=== PATIENT | male | born 1975 | race Caucasian/White ===

== ENCOUNTER 2023-07-27 08:57 | Outpatient (AMB) | payer BC, SELFPAY ==
--- NOTE | 2023-07-27 08:57 | A.OFFVIS_ITS ---
Intake Visit Reasons: UVJ stone/hx nephrolithiasis Intake Note: New Patient presents for initial visit for nephrolithiasis Urology Medications: none Blood Thinner: none Biophysics Professor Required: No Accompanied by: Self / Same As Patient Allergies No Known Allergies Allergy (Verified 07/27/23 21:21) Medication List - Last Reconciled 07/27/23 by AKIKO Dunn carbidopa-levodopa 25-100 mg 2 tabs PO BID trihexyphenidyl mg PO HPI Comments Details: Shagufta is a very pleasant 47-year-old male patient of Dr. Ibrahim. He has a past medical history of Parkinson's. He presents to the office today as a new patient for nephrolithiasis. In discussion with the patient today he reports to be doing and feeling well. He reports a longstanding history of nephrolithiasis. He reports typically he gets bouts of nephrolithiasis approximately every 3 years. He denies any previous surgical intervention for nephrolithiasis. Currently denies any bothersome urinary issues or concerns. He discusses appointment today to establish urology care. He denies urinary urgency, urinary frequency, incontinence, nocturia, hematuria, dysuria, foul smelling urine, changes to urinary stream, flank pain, fever, and or chills. He is happy with his current voiding parameters. He brings with him stone for stone analysis however it does not appear it is an adequate sample. He reports previously following up with [facility]. In office urinalysis results reviewed with the patient today. He otherwise offers no other issues or concerns at this time. [facility] Medical History Parkinson's disease Surgical History History of tonsillectomy Review of Systems Const All systems reviewed & are unremarkable except as noted in HPI and below Physical Exam Const General: cooperative, healthy appearing, comfortable, no acute distress, well developed, alert and awake Orientation/consciousness: patient oriented x3 HEENT Head: Yes normal to inspection, Yes normocephalic and Yes atraumatic Ears: hearing grossly normal bilaterally Eyes General: appearance normal, both eyes and all related structures Neck Neck: Yes normal visual inspection and Yes trachea midline Chest Chest palpation & inspection: normal inspection of the chest Resp Effort & Inspection: normal respiratory effort and able to speak in complete sentences Cardio Rate: regular rate GI Inspection: Yes normal to inspection General: Yes no CVA tenderness Back/Spine/Pelvis Back: no CVA tenderness Skin General skin exam: no rashes or lesions noted Neuro General: patient oriented x3 Extrem General: Yes normal to inspection Psych Appearance: grossly normal and well kempt Mental Status: mental status grossly normal Speech and movement: Normal speech and movement present and Clear speech present Affect: normal affect Attitude: cooperative Thought process: Normal thought process present Thought content: Normal thought content present Insight: Fair insight present (Psych) Judgement: Fair judgement present (Psych) Results AMB Urinalysis, Automated UA Leukoctes 0 Raffaele/uL Last Edit by [employer] Anneliseana on 07/27/23 09:12 UA Nitrite Negative Last Edit by Seakeeperantonio Castelanana on 07/27/23 09:12 UA Urobilinogen 0.2 mg/dL Last Edit by [employer] Anneliseana on 07/27/23 09:12 UA Protein 0 mg/dL Last Edit by YrnBrandarkanton[employer] Castelanana on 07/27/23 09:12 UA pH 7.0 Last Edit by [employer] Natali on 07/27/23 09:12 UA Blood 0 Figueroa/uL Last Edit by [employer] Anneliseana on 07/27/23 09:12 UA Specific [place] 1.015 Last Edit by Seakeeperantonio Castelanana on 07/27/23 09:12 UA Ketone Negative Last Edit by [employer] Anneliseana on 07/27/23 09:12 UA Bilirubin 0 mg/dL Last Edit by [employer] Anneliseana on 07/27/23 09:12 UA Glucose 0 mg/dL Last Edit by [employer] Annelsieana on 07/27/23 09:12 Results Reviewed Results Reviewed: Laboratory Last Values Urine pH (Auto) 7.0 07/27/23 09:05 Specific [place] (Auto) 1.015 07/27/23 09:05 Urine Protein (Auto) 0 mg/dL 07/27/23 09:05 Glucose (UA)(Auto) 0 mg/dL 07/27/23 09:05 Urine Ketones (Auto) Negative 07/27/23 09:05 Urine Blood (Auto) 0 Figueroa/uL 07/27/23 09:05 Urine Nitrite (Auto) Negative 07/27/23 09:05 Urine Bilirubin (Auto) 0 mg/dL 07/27/23 09:05 Urine Urobilinogen (Auto) 0.2 mg/dL 07/27/23 09:05 Leukocyte Esterase (Auto) 0 Raffaele/uL 07/27/23 09:05 Assessment & Plan Assessment & Plan (1) Nephrolithiasis: Code(s): N20.0 - Calculus of kidney Category: Medical Plan In office urinalysis results reviewed with the patient today; as noted above. Patient currently denies any bothersome urinary issues or concerns. Patient reports be happy with current voiding parameters. Will obtain renal ultrasound for further assessment evaluation. Will obtain magnesium, phosphorus, BNP, calcium, uric acid, vitamin-D, and 24 hour urine for further assessment evaluation. Discussed at length potential causes of nephrolithiasis. Discussed adding 1 oz of lemon juice to water daily. Discussed, educated, and stressed the importance of drinking plenty of water scotty ly. Follow-up in 3 months with imaging, labs, and 24 hour urine collection; or sooner with any issues, concerns, and or questions. Orders: Orders AMB Urinalysis Automated Today Z13.9 - Encounter for screening, unspecified US renal BI Today N20.0 - Calculus of kidney Magnesium Today N20.0 - Calculus of kidney Phosphorus Today N20.0 - Calculus of kidney URORISK Today N20.0 - Calculus of kidney Basic Metabolic Panel Today N20.0 - Calculus of kidney Calcium Today N20.0 - Calculus of kidney Uric Acid Today N20.0 - Calculus of kidney Vitamin D 25-OH Total Today N20.0 - Calculus of kidney Patient Instructions: The patient had an opportunity to ask questions regarding the treatment plan. All questions were answered. Physical exam, labs, and imaging were discussed and reviewed in detail. As well as risks, benefits, and discussion of treatment choices. No major barriers to understanding were identified. The patient expressed understanding and agreement with the above treatment plan. The patient was made aware they should contact our office by phone for worsening of their current condition, the appearance of new symptoms, or with any questions or concerns. Compliance is encouraged with any medications and follow up testing that is ordered. It is a privilege to be allowed the opportunity to participate in? your urological care.? Again, if you have any questions or concerns If you have any questions or concerns please do not hesitate to contact me. The office is [phone]. This note is constructed using voice recognition software. While every effort has been made to ensure accuracy dental floss packer errors may have been included. Yours sincerely, AKIKO Dunn Coding Level of Care Code New Pt Level 3 (26897) Diagnoses Nephrolithiasis N20.0
== END 2023-07-27 09:25 | disposition home or self-care (01) ==
PROVIDERS: PCP Internal Medicine; Visit Provider Nurse Practitioner Family
DX: N20.0 Calculus of kidney (principal); Z13.9 Encounter for screening, unspecified
CPT/HCPCS: 99203

== ENCOUNTER → 2023-07-27 08:57 | Outpatient (BNVA) | payer BC, SELFPAY | PROVIDERS: PCP Internal Medicine; Visit Provider Nurse Practitioner Family | DX: N20.0 Calculus of kidney (principal) | CPT/HCPCS: 81003 ==

== ENCOUNTER 2023-10-14 15:19 | Outpatient (REF) | payer BC, SELFPAY ==
--- NOTE | ~2023-10-14 | US_ITS ---
EXAMINATION: US RETROPERITONEAL LIMITED (RENAL ONLY) CLINICAL INFORMATION: Calculus of kidney. COMPARISON: None available. TECHNIQUE: Real-time imaging of the kidneys. Limited visualization due to bowel gas. FINDINGS: RIGHT KIDNEY: 9.0 x 4.6 x 6.1 cm (SAG x AP x TRV). No hydronephrosis. No renal calculi. Renal cortical thickness is normal. Limited visualization. LEFT KIDNEY: 10.6 x 5.3 x 5.7 cm (SAG x AP x TRV). No renal calculi. Normal renal cortical thickness. Limited visualization. Mild caliectasis. US/US renal BI IMPRESSION: Mild left caliectasis. No renal calculi.
== END 2023-10-14 15:20 | disposition home or self-care (01) ==
LOC: HO.HMGCX 15:19
PROVIDERS: PCP Physician Assistant Medical; Visit Provider Nurse Practitioner Family
DX: N20.0 Calculus of kidney (principal)
CPT/HCPCS: 76775

== ENCOUNTER 2023-11-17 11:53 | Outpatient (REF) | payer BC, SELFPAY ==
[2023-11-17 13:51] LABS: Anion Gap 9 (12-20); Blood Urea Nitrogen 17 mg/dL (9-16); Calcium 9.2 mg/dL (8.4-10.2); Carbon Dioxide 28 mmol/L (22-29); Chloride 108 mmol/L (96-108); Estimated Glomerular Filt Rate > 60; Glucose Random 104 mg/dL (60-115); Magnesium 2.1 mg/dL (1.6-2.6); Phosphorus 2.5 mg/dL (2.7-4.5); Potassium 4.3 mmol/L (3.3-5.1); Sodium 141 mmol/L (135-145)
[2023-11-17 14:05] LABS: Vitamin D 25-OH Total 51.6 ng/mL (>30)
== END 2023-11-17 11:54 | disposition home or self-care (01) ==
LOC: HO.HMGCLDS 11:53
PROVIDERS: PCP Physician Assistant Medical; Visit Provider Nurse Practitioner Family
DX: N20.0 Calculus of kidney (principal)
CPT/HCPCS: 36415; 80048; 82306; 83735; 84100; 84550

== ENCOUNTER 2023-12-08 15:43 | Outpatient (AMB) | payer BC, SELFPAY ==
--- NOTE | 2023-12-08 15:46 | A.OFFVIS_ITS ---
Intake Visit Reasons: 3m/US/labs/Litholink(set) Intake Note: Patient presents today for follow up on: nephrolithiasis, litholink and ultrasound results Imaging Completed: 10/14/23 Urology Medications: none Blood Thinner: none Crude Oil Treater Required: No Accompanied by: Self / Same As Patient Allergies No Known Allergies Allergy (Verified 12/08/23 17:19) Medication List - Last Reconciled 12/08/23 by AKIKO Dunn carbidopa-levodopa 25-100 mg 2 tabs PO BID trihexyphenidyl mg PO HPI Comments Details: Shagufta is a very pleasant 48-year-old male patient of Dr. Ibrahim. He has a past medical history of Parkinson's. He presents to the office today for follow-up. Of note, patient was seen approximately 4 months ago as a new patient for nephrolithiasis at which time a renal ultrasound was ordered and a 24 hour urine collection for further assessment evaluation. These results were reviewed with the patient today. Bilateral kidneys with no calculi. Right kidney with no hydronephrosis. Left kidney with mild caliectasis. 24 hour urine collection reviewed low urine output of a proximally 1100 mL. We discussed at length importance of increase in hydration. We discussed urine output to be increased to a proximally 2-2.5 L per day. He currently denies any bothersome urinary issues or concerns. He denies urinary urgency, urinary frequency, incontinence, nocturia, hematuria, dysuria, foul smelling urine, changes to urinary stream, flank pain, fever, and or chills. He is happy with his current voiding parameters. He reports previously following up with [facility]. In office urinalysis results reviewed with the patient today. He otherwise offers no other issues or concerns at this time. [facility] Medical History Parkinson's disease Surgical History History of tonsillectomy Review of Systems Const All systems reviewed & are unremarkable except as noted in HPI and below Physical Exam Const General: cooperative, healthy appearing, comfortable, no acute distress, well developed, alert and awake Orientation/consciousness: patient oriented x3 HEENT Head: Yes normal to inspection, Yes normocephalic and Yes atraumatic Ears: hearing grossly normal bilaterally Eyes General: appearance normal, both eyes and all related structures Neck Neck: Yes normal visual inspection and Yes trachea midline Chest Chest palpation & inspection: normal inspection of the chest Resp Effort & Inspection: normal respiratory effort and able to speak in complete sentences Cardio Rate: regular rate GI Inspection: Yes normal to inspection General: Yes no CVA tenderness Back/Spine/Pelvis Back: no CVA tenderness Skin General skin exam: no rashes or lesions noted Neuro General: patient oriented x3 Extrem General: Yes normal to inspection Psych Appearance: grossly normal and well kempt Mental Status: mental status grossly normal Speech and movement: Normal speech and movement present and Clear speech present Affect: normal affect Attitude: cooperative Thought process: Normal thought process present Thought content: Normal thought content present Insight: Fair insight present (Psych) Judgement: Fair judgement present (Psych) Results Reviewed Results Reviewed: Date of Service: 10/14/23 EXAMINATION: US RETROPERITONEAL LIMITED (RENAL ONLY) FINDINGS: RIGHT KIDNEY: 9.0 x 4.6 x 6.1 cm (SAG x AP x TRV). No hydronephrosis. No renal calculi. Renal cortical thickness is normal. Limited visualization. LEFT KIDNEY: 10.6 x 5.3 x 5.7 cm (SAG x AP x TRV). No renal calculi. Normal renal cortical thickness. Limited visualization. Mild caliectasis. IMPRESSION: Mild left caliectasis. No renal calculi. Assessment & Plan Assessment & Plan (1) Nephrolithiasis: Code(s): N20.0 - Calculus of kidney Category: Medical Plan In office urinalysis results reviewed with the patient today; as noted above. Recent renal imaging results reviewed with the patient today; as noted above. Recent 24 hour urine collection results reviewed with the patient today; as noted above. Discussed, educated, and stressed the importance of adequate hydration relation to nephrolithiasis as well as overall health and well-being. Patient currently denies any bothersome urinary issues or concerns. He reports be happy with current voiding parameters. Discussed adding 1 oz of lemon juice to water daily. Follow-up in 6 months with imaging to be completed prior; or sooner with any issues, concerns, and or questions. Orders: Orders US renal BI 6 Months N20.0 - Calculus of kidney Patient Instructions: The patient had an opportunity to ask questions regarding the treatment plan. All questions were answered. Physical exam, labs, and imaging were discussed and reviewed in detail. As well as risks, benefits, and discussion of treatment choices. No major barriers to understanding were identified. The patient expressed understanding and agreement with the above treatment plan. The patient was made aware they should contact our office by phone for worsening of their current condition, the appearance of new symptoms, or with any questions or concerns. Compliance is encouraged with any medications and follow up testing that is ordered. It is a privilege to be allowed the opportunity to p articipate in? your urological care.? Again, if you have any questions or concerns If you have any questions or concerns please do not hesitate to contact me. The office is [phone]. This note is constructed using voice recognition software. While every effort has been made to ensure accuracy venetian blind worker errors may have been included. Yours sincerely, AKIKO Dunn Coding Level of Care Code Est Pt Level 3 (56800) Diagnoses Nephrolithiasis N20.0
== END 2023-12-08 16:03 | disposition home or self-care (01) ==
PROVIDERS: PCP Internal Medicine; Visit Provider Nurse Practitioner Family
DX: N20.0 Calculus of kidney (principal)
CPT/HCPCS: 99213

== ENCOUNTER → 2023-12-08 15:43 | Outpatient (BNVA) | payer BC, SELFPAY | PROVIDERS: PCP Internal Medicine; Visit Provider Nurse Practitioner Family ==

== ENCOUNTER 2024-05-30 15:12 | Outpatient (REF) | payer BC, SELFPAY ==
--- NOTE | ~2024-05-30 | US_ITS ---
EXAMINATION: US RENAL, BILATERALLY. CLINICAL INFORMATION: Calculus of the kidney COMPARISON: October 14, 2023. TECHNIQUE: Real-time ultrasound of the kidneys using grayscale and color Doppler technique.. FINDINGS: Right kidney: 10 x 5 x 6 cm. Volume: 156 cc. Normal echotexture. Normal renal cortical thickness. No hydronephrosis. No gross solid or cystic lesion. Normal flow on color Doppler interrogation of the renal hilum. Left kidney: 11 x 6 x 6 cm. Volume: 179 cc. Normal echotexture. Normal renal cortical thickness. No hydronephrosis. There are a few, less than 1.4 cm anechoic lesions at the renal hilum without flow on color Doppler interrogation. There is flow on color Doppler interrogation of the renal hilum. US/US renal BI IMPRESSION: No hydronephrosis. Simple cysts, parapelvic, left kidney. Electronically signed by: Leon Walker MD 05/31/2024 07:26 AM EDT
--- OUTSIDE RECORDS SUMMARY | 2024-05-30 18:27 | XMS_ITS | Patient Health Record ---
Author Organization [facility] Address [address] [place] [address] Support Name Relationship Address Phone Andrea Love Guarantor Unknown Unavailable Allergies No Known Allergies Reason For Referral No Information Medications Medication SIG (Take, Route, Frequency, Duration) Notes Start Date End Date Status Carbidopa 25 MG 1 tablet Orally Thre e times a day Not-Taking Plenvu 140 GM as directed Orally Not-Taking Ketoconazole 2 % as directed Externally Not-Taking Trihexyphenidyl HCl 2 MG 1 tablet Orally Three times a day Active Cimetidine 400 MG TAKE 1 TABLET BY MOUTH EVERY DAY for 90 Active Fluorouracil 5 % APPLY TOPICALLY TO EACH WART EXTERNALLY ONCE A DAY 30 DAYS for 30 Active Carbidopa-Levodopa 25-100 MG 1 tablet as needed Orally Two times a Week Active Problems Problem Type SNOMED Code ICD Code Onset Dates Problem Status W/U Status Risk Notes Problem [id number] Hallux rigidus of right foot (M20.21) Active confirmed Plan Of Treatment Pending Test Test Name Order Date X ray : Foot, right 3v 05/05/2022 Insurance Providers Payer Name Payer Address Payer Phone Subscriber Number Group Number Insured Name Patient Relationship to Insured Coverage Start Date Coverage End Date [employer] [address] [place] [phone] [id number] Andrea Love Self - patient is the insured Medical (General) History Medical History History ICD Code parkinsons disease kidney stones hemorrhoids HDL lipoprotein deficiency COVID vaccinated X 2 (Moderna) and no geovanny osters + COVID 2020 Surgical History Surgery Date(Month/Year) tonsillectomy and adenoidectomy colonoscopy- negative 06/14/2009, 6 negative Hospitalization History Reason Date(Month/Year) tonsillectomy and adenoidectomy
--- OUTSIDE RECORDS SUMMARY | 2024-05-30 18:27 | XMS_ITS | Clinical Summary ---
Author Organization [facility] Address [address] [place] [address] Care Team Providers Care Grinder Outside Diameter Name Role Phone Erendira Wiseman MD Primary Care Provider Surgical History Surgery Date Site/Laterality Comments TONSILLECTOMY PROCEDURE: HISTORICAL TONSILLECTOMY; COMMENT: and adenoids as child COLONOSCOPY 07/15/2015 PROCEDURE: HISTORICAL COLONOSCOPY; COMMENT: Family history COLONOSCOPY 11/04/2020 PROCEDURE: HISTORICAL COLONOSCOPY; COMMENT: rpt 5 years, + fam hx Medical History Medical History Date Comments Benign essential tremor 12/11/2014 DX:José Luis waters essential tremor Family History Medical History Relation Name Comments Other cancer Maternal Grandmother thyroid cancer, exposure chemical Colon cancer Mother at age 39 Other cancer Paternal Grandfather pancrea tic cancer Other: colon polyp Sister 1 age 36 Other cancer Uncle nonhodgkins lym phoma Relation Name Status Comments Father (Age 53) Alcohol ab use, cardiac disease Maternal Grandfather cancer of pancreas Maternal Grandmother Alive Mother Alive Paternal Grandfather Paternal Grandmother Sister 1 Sister 2 Alive Sister 3 Alive Uncle Social History Tobacco Use Types Packs/Day Years Used Date Smoking Tobacco: Former Cigarettes Q uit: 03/22/1995 Smokeless Tobacco: Never Alcohol Use Standard Drinks/Week Comments No 0 (1 standard drink = 0.6 oz pur e alcohol) Sex and Gender Information Value Date Recorded Sex Assigned at Not on file Legal Sex Male 3:28 AM EST Gender Identity Not on file Sexual Orientation Not on file Obstetrics History Plan of Treatment Health Maintenance Due Date Last Done Comments Hepatitis B Vaccines (1 of 3 - 19+ 3-dose series) 1993 DTaP,Tdap,and Td Vaccines (2 - Td or Tdap) 11/06/2017 11/07/2007 COVID-19 Vaccine (2023-2 5 season) 2023 Influenza Vaccine (#1) 2023 8, 12/23/2016, 01/06/2015 HIB Vaccines Aged Out No longer eligi ble based on patient's age to complete this topic HPV Vaccines Aged Out No longer eligi ble based on patient's age to complete this topic Hepatitis A Vaccines Aged Out No long er eligible based on patient's age to complete this topic IPV Vaccines Aged Out No longer eligi ble based on patient's age to complete this topic MMR Vaccines Aged Out No longer eligi ble based on patient's age to complete this topic Meningococcal ACWY Vaccine Aged Out N o longer eligible based on patient's age to complete this topic Meningococcal B Vacine Aged Out No lo nger eligible based on patient's age to complete this topic Pneumococcal Vaccine: Pediatrics (0 to 5 Years) and At-Risk Patients (6 to 64 Years) Aged Out No longer eligible b ased on patient's age to complete this topic RSV Immunization Patients Under 20 months Aged Out No longer eligible b ased on patient's age to complete this topic Varicella Vaccines Aged Out No longer eligible based on patient's age to complete this topic Care Teams Grinder Outside Diameter Relationship Specialty Start Date End Date Erendira Wiseman MD PCP - General Internal Medicine 04/16/15
== END 2024-05-30 15:13 | disposition home or self-care (01) ==
LOC: HO.HMGCX 15:12
PROVIDERS: Visit Provider Nurse Practitioner Family
DX: N20.0 Calculus of kidney (principal)
CPT/HCPCS: 76775

== ENCOUNTER → 2024-05-30 15:14 | Outpatient (BNV) | payer BC, SELFPAY | PROVIDERS: Visit Provider Radiology Diagnostic Radiology | DX: N28.1 Cyst of kidney, acquired (principal) | CPT/HCPCS: 76775 ==

== ENCOUNTER 2024-06-06 11:19 | Outpatient (AMB) | payer BC, SELFPAY ==
--- NOTE | 2024-06-06 11:20 | A.OFFVIS_ITS ---
Intake Visit Reasons: 6 month follow up/US(set) Intake Note: Patient presents today for follow up on: nephrolithiasis and ultrasound results Imaging Completed: 05/30/24 Urology Medications: none Blood Thinner: none Semi Automatic Sewing Machine Operator Required: No Accompanied by: Self / Same As Patient Allergies No Known Allergies Allergy (Verified 06/06/24 11:32) Medication List - Last Reconciled 06/06/24 by AKIKO Dunn carbidopa-levodopa 25-100 mg 2 tabs PO BID entacapone 200 mg PO BID trihexyphenidyl mg PO HPI Comments Details: Shagufta is a very pleasant 48-year-old male patient of Dr. Ibrahim. He has a past medical history of Parkinson's. He is being followed up on today via telehealth for his history of nephrolithiasis. In discussion with the patient today reports to be doing and feeling well. He denies having had any bothersome urinary issues or concerns since his last office visit here. He discusses having recently started a new medication for his Parkinson's in this has changed the color of his urine however it is a side effect to the medication. Recent renal imaging results reviewed with the patient today 06/13 bilateral kidneys are normal in echotexture. No hydronephrosis or renal calculi noted bilaterally. There are a few less than 1.4 cm and anechoic lesions. Simple cysts, parapelvic, left kidney. Patient with a previous Litholink collection 11/12 noting low urine output of approximately 1100 mL. He discusses having increased his hydration to the best of his ability. He currently denies any bothersome urinary issues or concerns. He denies urinary urgency, urinary frequency, incontinence, nocturia, hematuria, dysuria, foul smelling urine, changes to urinary stream, flank pain, fever, and or chills. He is happy with his current voiding parameters. He otherwise offers no other issues or concerns at this time. [facility] Medical History Parkinson's disease Surgical History History of tonsillectomy Review of Systems Const All systems reviewed & are unremarkable except as noted in HPI and below Physical Exam Const General: cooperative Orientation/consciousness: patient oriented x3 Resp Effort & Inspection: able to speak in complete sentences Neuro General: patient oriented x3 Psych Mental Status: mental status grossly normal Speech and movement: Clear speech present Attitude: cooperative Thought process: Normal thought process present Thought content: Normal thought content present Insight: Fair insight present (Psych) Judgement: Fair judgement present (Psych) Telehealth Telehealth Telehealth Platform: [employer] Location of provider rendering services: practice address Location of patient: address on file Patient Identification confirmed using: Name, : Yes Telehealth method: voice only Patient verbally consented to treatment: Yes Patient verbally consented to billing insurance company: Yes Patient informed of any privacy concerns related to visit: Yes Minutes spent on Phone/Video with Pt.: 15 Results Reviewed Results Reviewed: Date of Service: 05/30/24 Procedure(s): US renal BI FINDINGS: Right kidney: 10 x 5 x 6 cm. Volume: 156 cc. Normal echotexture. Normal renal cortical thickness. No hydronephrosis. No gross solid or cystic lesion. Normal flow on color Doppler interrogation of the renal hilum. Left kidney: 11 x 6 x 6 cm. Volume: 179 cc. Normal echotexture. Normal renal cortical thickness. No hydronephrosis. There are a few, less than 1.4 cm anechoic lesions at the renal hilum without flow on color Doppler interrogation. There is flow on color Doppler interrogation of the renal hilum. IMPRESSION: No hydronephrosis. Simple cysts, parapelvic, left kidney. Assessment & Plan Assessment & Plan (1) Nephrolithiasis: Code(s): N20.0 - Calculus of kidney Category: Medical (2) Renal cyst: Code(s): N28.1 - Cyst of kidney, acquired Category: Medical Plan Recent renal imaging results reviewed with the patient today; as noted above. He currently denies any bothersome urinary issues or concerns. He reports be happy with current voiding parameters. We discussed importance of hydration relation to history of nephrolithiasis as well as overall health and well-being. Continue adding 1 oz of lemon juice to water daily. Will obtain renal ultrasound in 6 months. Follow-up in 6 months with imaging to be completed prior; or sooner with any issues, concerns, and or questions. Orders: Orders US renal BI 6 Months N20.0 - Calculus of kidney Patient Instructions: The patient had an opportunity to ask questions regarding the treatment plan. All questions were answered. Physical exam, labs, and imaging were discussed and reviewed in detail. As well as risks, benefits, and discussion of treatment choices. No major barriers to understanding were identified. The patient expressed understanding and agreement with the above treatment plan. The patient was made aware they should contact our office by phone for worsening of their current condition, the appearance of new symptoms, or with any questions or concerns. Compliance is encouraged with any medications and follow up testing that is ordered. It is a privilege to be allowed the opportunity to participate in? your urological care.? Again, if you have any questions or concerns If you have any questions or concerns please do not hesitate to contact me. The office is [phone]. This note is constructed using voice recognition software. While every effort has been made to ensure accuracy paper cone machine tender errors may have been included. Yours sincerely, AKIKO Dunn Coding Level of Care Code Tele Est Pt Level 3 (97896) Diagnoses Nephrolithiasis N20.0 Renal cyst N28.1
--- OUTSIDE RECORDS SUMMARY | 2024-06-06 13:47 | XMS_ITS | Clinical Summary ---
Author Organization [facility] Address [address] [place] [address] Care Team Providers Care Media Relations Director Name Role Phone Erendira Wiseman MD Primary [...] age to complete this topic Care Teams Media Relations Director Relationship Specialty Start Date End Date Erendira Wiseman MD PCP - General Internal Medicine 04/16/15
--- OUTSIDE RECORDS SUMMARY | 2024-06-06 13:47 | XMS_ITS | Patient Health Record ---
Author Organization [facility] Address [address] [facility] [address] [place] [address] Support Name Relationship Address Phone Andrea Love [...] Problem Status W/U Status Risk Notes Problem [id number] Hallux rigidus of right foot (M20.21) Active confirmed Plan Of Treatment Pending Test Test Name Order Date X ray : Foot, right 3v 05/05/2022 Insurance Providers Payer Name Payer Address Payer Phone Subscriber Number Group Number Insured Name Patient Relationship to Insured Coverage Start Date Coverage End Date [employer] [id number] [place] [phone] [id number] Andrea Love Self - patient is the insured Medical (General) History Medical History History ICD Code parkinsons disease kidney stones hemorrhoids HDL lipoprotein deficiency COVID vaccinated X 2 (Moderna) and no geovanny osters + COVID 2020 Surgical History Surgery Date(Month/Year) tonsillectomy and adenoidectomy colonoscopy- negative 06/14/2009, 6 negative Hospitalization History Reason Date(Month/Year) tonsillectomy and adenoidectomy
== END 2024-06-06 12:10 | disposition home or self-care (01) ==
LOC: HO.HUSH 11:19
PROVIDERS: Visit Provider Nurse Practitioner Family
DX: N20.0 Calculus of kidney (principal); N28.1 Cyst of kidney, acquired
CPT/HCPCS: 99213

== ENCOUNTER → 2024-06-06 11:19 | Outpatient (BNVA) | payer BC, SELFPAY | PROVIDERS: Visit Provider Nurse Practitioner Family ==

== ENCOUNTER 2024-11-09 16:26 | Outpatient (REF) | payer BC, SELFPAY ==
--- NOTE | ~2024-11-09 | US_ITS ---
EXAMINATION: US RETROPERITONEAL LIMITED (RENAL ONLY) CLINICAL INFORMATION: Calculus of kidney.. COMPARISON: May 30, 2024. TECHNIQUE: Real-time ultrasound kidneys using grayscale technique. FINDINGS: RIGHT KIDNEY: 10 x 5 x 5 cm (SAG x AP x TRV). Volume: 120 cc. Normal echotexture. Normal renal cortical thickness. No hydronephrosis. No gross solid or cystic lesion detected by the technologist. LEFT KIDNEY: 10 x 5 x 5 cm (SAG x AP x TRV). Volume: 136 cc. Normal echotexture. Normal renal cortical thickness. No hydronephrosis. Probable small parapelvic renal cysts. US/US renal BI IMPRESSION: No hydronephrosis. Probable small parapelvic renal cysts, left kidney.. Electronically signed by: Leon Walker MD 11/10/2024 08:40 AM EDT
--- OUTSIDE RECORDS SUMMARY | 2024-11-09 16:28 | XMS_ITS | Patient Health Record ---
Author Organization [facility] Address [address] [address] Care Team Providers Care Manager Cardiovascular Name Role Phone MULU SPENCER Unavailable [phone] Allergies No Known Allergies Reason For Referral No Information Medications Medication SIG (Take, Route, Frequency, Duration) Notes Start Date End Date Status Carbidopa 25 MG 1 tablet Orally Thre e times a day Not-Taking Ketoconazole 2 % as directed Externally Not-Taking Plenvu 140 GM as directed Orally Not-Taking Fluorouracil 5 % APPLY TOPICALLY TO EACH WART EXTERNALLY ONCE A DAY 30 DAYS; Duration: 30 Not-Taking Cimetidine 400 MG TAKE 1 TABLET BY MOUTH EVERY DAY; Duration: 90 Not-Taking Trihexyphenidyl HCl 2 MG 1 tablet Orally Three times a day Active Carbidopa-Levodopa 25-100 MG 1 tablet as needed Orally Two times a Week Active Entacapone 200 MG 1 tablet Orally Four times a day Active Diclofenac Sodium 1 % 1 gm to the right foot Externally twice daily; Duration: 60 days 07/03/2024 Active Problems Problem Type SNOMED Code ICD Code Onset Dates Problem Status W/U Status Risk Notes Problem Acquired hallux rigidus (0275265) Hallux rigidus, right foot (M20.21) Active confirmed Vital Signs Heart Rate 96 /min 07/03/2024 Temperature 97.4 degrees Fahrenheit 07/03/2024 Respiratory Rate 12 /min 07/03/2024 Height 5ft 11in in 07/03/2024 Weight 172.2 lbs 07/03/2024 BMI 24.01 kg/m2 07/03/2024 Encounters Encounter Location Date Provider Diagnosis [facility] [address] [facility] [address] [place] [address] 07/03/2024 MULU SPENCER Hallux rigidus, right foot M20.21 and Pain in right foot M79.671 Assessments Encounter Date Diagnosis (ICD Code) Assessment Notes Treatment Notes Treatment Clinical Notes Section Notes 07/03/2024 Hallux rigidus, right foot (ICD-10 - M20.21) This is an outpatient visit for evaluation and management of a new problem, which required appropriate review of pertinent medical history, review of any previous imaging, review of all previous records, and examination and decision-making. Time was 30 minutes spent in review of all these facets including face to face discussion with the patient regarding my findings and in discussion of a current and future treatment plan. I reviewed the results of the x-rays performed in the office today with the patient. We discussed he has a bone spur on the top of the joint and also some arthritic changes through the joint. We discussed the spur and the arthritis are likely causing the pain. We discussed there is no cure for the arthritis, just symptom management. We discussed options for treatment include: orthotics, OTC and custom options, NSAIDs (oral and topical), steroid injections, physical therapy, and surgery. We discussed a cheilectomy procedure. The patient would like to start with conservative options first. I dispensed a handout for recommended OTC inserts with the patient. I also sent an RX for diclofenac gel to apply to the right foot twice daily. I would like to see him back in 2 months to see if his has any improvement. The patient is in agreement with this plan. Inserts and Diclofenac, discussed steroid injections and surgery (cheilectomy) 07/03/2024 Pain in right foot (ICD-10 - M79.671) Plan Of Treatment Pending Test Test Name Order Date X ray : Foot, right 3v 05/05/2022 X ray : Foot, right 3v 07/03/2024 Medical (General) History Medical History History ICD Code parkinsons disease kidney stones hemorrhoids HDL lipoprotein deficiency COVID vaccinated X 2 (Moderna) and no geovanny osters + COVID 2020 Surgical History Surgery Date(Month/Year) tonsillectomy and adenoidectomy colonoscopy- negative 06/14/2009, 6 negative Hospitalization History Reason Date(Month/Year) tonsillectomy and adenoidectomy
--- OUTSIDE RECORDS SUMMARY | 2024-11-09 16:28 | XMS_ITS | Clinical Summary ---
Author Organization [address] [facility] Address [address] [place] [address] Phone Care Team Providers Care Investment Sales Assistant Name Role Phone Van Moss Primary Care Provider [phone] Surgical History Surgery Date Site/Laterality Comments TONSILLECTOMY PROCEDURE: HISTORICAL TONSILLECTOMY; COMMENT: and adenoids as child COLONOSCOPY 07/15/2015 PROCEDURE: HISTORICAL COLONOSCOPY; COMMENT: Family history COLONOSCOPY 11/04/2020 PROCEDURE: HISTORICAL COLONOSCOPY; COMMENT: rpt 5 years, + fam hx Medical History Medical History Date Comments Benign essential tremor 12/11/2014 DX:José Luis n essential tremor Family History Medical History Relation [...] on file Obstetrics History Plan of Treatment Upcoming Encounters Date Type Department Care Team ([facility] Contact Info) Description 11/16/2024 3:45 PM EDT Consult General Surgery [facility] [address] [facility] [address] [place] [address] Cesar Ramsay, DO [address] [address] Health Maintenance Due Date Last Done Comments Hepatitis B Vaccines (1 of 3 - 19+ 3-dose series) 1993 DTaP,Tdap,and Td Vaccines (2 - Td or Tdap) 11/06/2017 11/07/2007 COVID-19 Vaccine (1 - 2023-2 5 season) 2023 Depression Screening 03/22/2024 Pneumococcal Vaccine: 50+ Years (1 of 1 - PCV) 2024 Zoster Vaccines (1 of 2) 2024 Cholesterol Screening (Lipid Panel) 10/31/2024 Colorectal Cancer Screening: Colonoscopy 10/31/2024 HIV Screening 10/31/2024 Hepatitis C Screening 10/31/2024 Social Influencers of Health Screening 10/31/2024 Influenza Vaccine (#1) 2024 8, 12/23/2016, 01/06/2015 HIB Vaccines Aged Out [...] age to complete this topic Meningococcal B Vaccine Aged Out No l onger eligible based on patient's age to complete this topic RSV Immunization Patients Under 20 months Aged Out No longer eligible b ased on patient's age to complete this topic Varicella Vaccines Aged Out No longer eligible based on patient's age to complete this topic Procedures Procedure Name Priority Date/Time Associated Diagnosis Comments EXTERNAL CLINICAL LAB 10/30/2024 from Last 3 Months Results * External clinical lab (10/30/2024) us Provider [facility] BLOOD ORDERABLES Fin al Result from Last 3 Months Insurance [facility] Care Teams Investment Sales Assistant Relationship Specialty Start Date End Date Van Moss PA [address] [place] [address] [phone] PCP - General Primary Care 10/31/24
== END 2024-11-09 16:27 | disposition home or self-care (01) ==
LOC: HO.US 16:26
PROVIDERS: PCP Physician Assistant Medical; Visit Provider Nurse Practitioner Family
DX: N20.0 Calculus of kidney (principal)
CPT/HCPCS: 76775

== ENCOUNTER → 2024-11-09 16:27 | Outpatient (BNV) | payer BC, SELFPAY | PROVIDERS: PCP Physician Assistant Medical; Visit Provider Radiology Diagnostic Radiology | DX: N20.0 Calculus of kidney (principal) | CPT/HCPCS: 76775 ==

== ENCOUNTER 2024-11-30 08:08 | Outpatient (AMB) | payer BC, SELFPAY ==
--- OUTSIDE RECORDS SUMMARY | 2024-09-04 12:00 | XMS_ITS ---
Author Organization [facility] Address [address] [address] Care Team Providers Care Clean Up Helper Banquet Name Role Phone MULU RAND Unavailable [phone] REASON FOR VISIT 2 month Encounters Encounter Location Date Provider Diagnosis [facility] [address] [address] 09/04/2024 MULU RAND Plan Of Treatment No Information Progress Notes * SOTEROGiovanni MARTINEZlailaDOB:1975 (49 yo M)Acc No.[id number]:09/04/2024 Patient: Andrea THOMAS Provider: Nova Rand DPM :1975 A ge:48 Y S ex:Male Date:09/04/2024 Phone: Address:[address] [place] [id number] Subjective: * Chief Complaints: * 1 . 2 month. * Medical History: Objective: * Vitals: Assessment: Plan: * Treatment: * Billing Information: * Visit Code: * Procedure Codes: * Electronic signature of NITIN ARND D.P.M on 11/30/2024 at 08:49 AM EDT Sign off status: Pending * Provider: Nova Rand DPM Date: 0 09/04/2024 Generated for Rocky mcintyre/David/Ezraitting on: 11/30/2024 08:49 AM EDT
--- NOTE | 2024-11-30 08:09 | MHC.OFFVIS ---
Intake Visit Reasons: 6m/PSA(set) Intake Note: Patient is present for 6M/US Urology Medication:NONE Antibiotic Allergy:NONE Blood Thinner:NONE Lab Nurse Required: No Allergies No Known Allergies Allergy (Verified 11/30/24 08:34) Medication List - Last Reconciled 11/30/24 by AKIKO Dunn carbidopa-levodopa 25-100 mg 2 tabs PO BID entacapone 200 mg PO BID trihexyphenidyl mg PO HPI Comments Details: Shagufta is a very pleasant 49-year-old male patient of . He has a past medical history of Parkinson's. He is being followed up on today via video telehealth for his history of nephrolithiasis. In discussion with the patient today reports to be doing and feeling well. He denies having had any bothersome urinary issues or concerns since his last office visit here. Recent renal imaging results reviewed with the patient today 11/13 bilateral kidneys are normal in echotexture. No hydronephrosis or renal calculi noted bilaterally. Probable small peripelvic renal cysts left kidney per radiology report. He reports having annual surveillance monitoring of PSAs with PCP. Previous workup has included Litholink collection 11/12 noting low urine output of approximately 1100 mL at which time recommendations were made for increase in hydration. In discussion with the patient today he reports he has been doing so. He denies urinary urgency, urinary frequency, incontinence, nocturia, hematuria, dysuria, foul smelling urine, changes to urinary stream, flank pain, fever, and or chills. He is happy with his current voiding parameters. We did discuss repeat Litholink for further assessment evaluation and to ensure adequate hydration however will continue with surveillance monitoring at this time. He otherwise offers no other issues or concerns at this time. [facility] Medical History Parkinson's disease Surgical History History of tonsillectomy Review of Systems Const All systems reviewed & are unremarkable except as noted in HPI and below Physical Exam Const General: cooperative, healthy appearing, comfortable, no acute distress, well developed, alert and awake Orientation/consciousness: patient oriented x3 Resp Effort & Inspection: normal respiratory effort and able to speak in complete sentences Neuro General: patient oriented x3 Psych Appearance: grossly normal and well kempt Speech and movement: Clear speech present Affect: normal affect Attitude: cooperative Thought content: Normal thought content present Insight: Fair insight present (Psych) Judgement: Fair judgement present (Psych) Telehealth Telehealth Telehealth Platform: [employer] Location of provider rendering services: practice address Location of patient: address on file Patient Identification confirmed using: Name, : Yes Telehealth method: video Patient verbally consented to treatment: Yes Patient verbally consented to billing insurance company: Yes Patient informed of any privacy concerns related to visit: Yes Minutes spent on Phone/Video with Pt.: 15 Results Reviewed Results Reviewed: Date of Service: 11/09/24 Procedure(s): US renal BI FINDINGS: RIGHT KIDNEY: 10 x 5 x 5 cm (SAG x AP x TRV). Volume: 120 cc. Normal echotexture. Normal renal cortical thickness. No hydronephrosis. No gross solid or cystic lesion detected by the technologist. LEFT KIDNEY: 10 x 5 x 5 cm (SAG x AP x TRV). Volume: 136 cc. Normal echotexture. Normal renal cortical thickness. No hydronephrosis. Probable small parapelvic renal cysts. IMPRESSION: No hydronephrosis. Probable small parapelvic renal cysts, left kidney.. Assessment & Plan Assessment & Plan (1) Nephrolithiasis: Code(s): N20.0 - Calculus of kidney Category: Medical (2) Renal cyst: Code(s): N28.1 - Cyst of kidney, acquired Category: Medical Plan Recent renal imaging results reviewed with the patient today; as noted above. He currently denies any bothersome urinary issues or concerns. He reports be happy with current voiding parameters. We discussed importance of hydration relation to history of nephrolithiasis as well as overall health and well-being. Continue adding 1 oz of lemon juice to water daily. Will obtain renal ultrasound in 3 months; due to insurance changes per patient request Follow-up in 3 months with imaging to be completed prior; or sooner with any issues, concerns, and or questions. Orders: Orders US renal BI 3 Months N20.0 - Calculus of kidney Patient Instructions: The patient had an opportunity to ask questions regarding the treatment plan. All questions were answered. Physical exam, labs, and imaging were discussed and reviewed in detail. As well as risks, benefits, and discussion of treatment choices. No major barriers to understanding were identified. The patient expressed understanding and agreement with the above treatment plan. The patient was made aware they should contact our office by phone for worsening of their current condition, the appearance of new symptoms, or with any questions or concerns. Compliance is encouraged with any medications and follow up testing that is ordered. It is a privilege to be allowed the opportunity to participate in? your urological care.? Again, if you have any questions or concerns If you have any questions or concerns please do not hesitate to contact me. The office is [phone]. This note is constructed using voice recognition software. While every effort has been made to ensure accuracy glycerin operator errors may have been included. Yours sincerely, AKIKO Dunn Coding Level of Care Code Tele Est Pt Level 3 (21867) Diagnoses Nephrolithiasis N20.0 Renal cyst N28.1
--- OUTSIDE RECORDS SUMMARY | 2024-11-30 08:49 | XMS_ITS | Patient Health Record ---
Author Organization [facility] Address [address] [address] Care Team Providers Care Web Graphic Designer Name Role Phone MULU SPENCER Unavailable [phone] Allergies No Known Allergies Reason For Referral [...] Status Risk Notes Problem Acquired hallux rigidus (6578007) Hallux rigidus, right foot (M20.21) Active confirmed Vital Signs Heart Rate 96 /min 07/03/2024 Temperature 97.4 degrees Fahrenheit 07/03/2024 Respiratory Rate 12 /min 07/03/2024 Height 5ft 11in in 07/03/2024 Weight 172.2 lbs 07/03/2024 BMI 24.01 kg/m2 07/03/2024 Encounters Encounter Location Date Provider Diagnosis [facility] [address] [facility] [address] [place] [address] 07/03/2024 MULU SPENCER Hallux rigidus, right foot [...]
== END 2024-11-30 09:13 | disposition home or self-care (01) ==
PROVIDERS: PCP Physician Assistant Medical; Visit Provider Nurse Practitioner Family
DX: N20.0 Calculus of kidney (principal); N28.1 Cyst of kidney, acquired
CPT/HCPCS: 99213

== ENCOUNTER 2025-03-12 15:37 | Outpatient (REF) | payer BC, SELFPAY ==
--- OUTSIDE RECORDS SUMMARY | 2024-09-04 11:00 | XMS_ITS ---
Author Organization [facility] Address [address] [address] Care Team Providers Care Fundraising Coordinator Name Role Phone MULU RAND Unavailable [phone] REASON FOR VISIT 2 month Encounters Encounter Location Date Provider Diagnosis [facility] [address] [address] 09/04/2024 MULU RAND Plan Of Treatment No Information Progress Notes * SOTEROGiovanni MARTINEZlailaDOB:1975 (49 yo M)Acc No.[id number]:09/04/2024 Patient: Andrea THOMAS Provider: Nova Rand DPM :1975 A ge:48 Y S ex:Male Date:09/04/2024 Phone: Address:[address] [place] [id number] Subjective: * Chief Complaints: * 1 . 2 month. * Medical History: Objective: * Vitals: Assessment: Plan: * Treatment: * Billing Information: * Visit Code: * Procedure Codes: * Electronic signature of NITIN RAND D.P.M on 03/12/2025 at 06:35 PM EST Sign off status: Pending * Provider: Nova Rand DPM Date: 0 09/04/2024 Generated for Rocky mcintyre/David/Ezraitting on: 1 05/13/2024 06:35 PM EST
--- NOTE | ~2025-03-12 | US_ITS ---
EXAMINATION: US KIDNEY BILATERAL HISTORY: N20.0 - Calculus of kidney TECHNIQUE: Real-time grayscale ultrasound imaging of the kidneys was performed and images were reviewed. COMPARISON: Comparison is made with the prior examination dated 11/09/2024. FINDINGS: Right kidney: The right kidney measures 9.6 x 5.0 x 4.8 cm. Renal parenchymal echotexture and thickness are normal. There is a 7 mm echogenic focus at the lower pole, similar in appearance to a prior examination dated 05/30/2024. There is no hydronephrosis or renal calculi. Left Kidney: The left kidney measures 9.8 x 5.0 x 5.7 cm. Renal parenchymal echotexture and thickness are normal. There are no masses. There is no hydronephrosis or renal calculi. US/US renal BI IMPRESSION: 7 mm echogenic focus at the lower pole of the right kidney. This may represent calcification within a cyst or a small angiomyolipoma. Follow-up is recommended. Electronically signed by: Cm Hernandes MD 03/13/2025 07:05 AM [facility] NAGEL
--- OUTSIDE RECORDS SUMMARY | 2025-03-12 18:36 | XMS_ITS | Patient Health Record ---
Author Organization [facility] Address [address] [address] Care Team Providers Care Abattoir Manager Name Role Phone MULU SPENCER Unavailable [phone] Allergies No Known Allergies Reason For Referral [...] Status Risk Notes Problem Acquired hallux rigidus (6075205) Hallux rigidus, right foot (M20.21) Active confirmed Vital Signs Heart Rate 96 /min 07/03/2024 Temperature 97.4 degrees Fahrenheit 07/03/2024 Respiratory Rate 12 /min 07/03/2024 Height 5ft 11in in 07/03/2024 Weight 172.2 lbs 07/03/2024 BMI 24.01 kg/m2 07/03/2024 Encounters Encounter Location Date Provider Diagnosis [facility] [address] [facility] [address] [place] [address] 07/03/2024 MULU SPENCER Hallux rigidus, right foot [...]
--- OUTSIDE RECORDS SUMMARY | 2025-03-12 18:36 | XMS_ITS | Clinical Summary ---
Author Organization [address] [place] [address] [place] [phone] Phone Care Team Providers Care Sales And Service Agent Name Role Phone Van Moss Primary Care Provider [phone] Allergies No known active allergies Medications carbidopa-levodo pa (SINEMET) 25-100 mg per tablet Take 1 tablet by mouth. Active trihexyphenidyL (ARTANE) 2 mg tablet Take 1 tablet (2 mg total) by mouth 3 (three) times a day with meals. 09/14/2019 Active Encounters Date Type Department Care Team Description 12/20/2024 3:30 PM EDT Procedure visit General Surgery - [address] [place] [address] Cesar Ramsay DO Neoplasm of uncertain behavior of skin (Primary Dx) from Last 3 Months Surgical History Surgery Date Site/Laterality Comments TONSILLECTOMY [...] Years Used Date Smoking Tobacco: Former Cigarettes 0.3 Q uit: 03/22/1995 Smokeless Tobacco: Never Alcohol Use Standard Drinks/Week Comments No 0 (1 standard drink = 0.6 oz pur e alcohol) Sex and Gender Information Value Date Recorded Sex Assigned at Not on file Legal Sex Male 3:28 AM EST Gender Identity Not on file Sexual Orientation Not on file Last Filed Vital Signs Vital Sign Reading Time Taken Comments Blood Pressure 117/78 12/20/2024 3:21 PM EDT Pulse 92 12/20/2024 3:21 PM EDT Temperature 36.2 C (97.1 F) 12/20/2024 3:21 PM EDT Respiratory Rate - - Oxygen Saturation - - Inhaled Oxygen Concentration - - Weight 79.4 kg (175 lb) 12/20/2024 3:21 PM EDT Height 177.8 cm (5' 10 ) 12/20/2024 3:21 PM EDT Body Mass Index 25.11 12/20/2024 3:21 PM EDT Plan of Treatment Health Maintenance Due Date Last Done Comments Colorectal Cancer Screening: Colonoscopy 1974 Hepatitis B Vaccines (1 of 3 - 19+ 3-dose series) 1993 DTaP,Tdap,and Td Vaccines (2 - Td or Tdap) 11/06/2017 11/07/2007 Depression Screening 03/22/2024 Pneumococcal Vaccine: 50+ Years (1 of 1 - PCV) 2024 Zoster Vaccines (1 of 2) 2024 Cholesterol Screening (Lipid Panel) 10/31/2024 HIV Screening 10/31/2024 Hepatitis C Screening 10/31/2024 Social Influencers of Health Screening 10/31/2024 COVID-19 Vaccine (3 - season) 2024 08/05/2020, 07/15/2020 Influenza Vaccine (#1) 2024 , 12/27/2021, 02/14/2020, Additional history exists RSV Immunization Adult Patients (1 - 1-dose 75+ series) 2049 HIB Vaccines Aged Out No longer eligi [...] 20 months Aged Out No longer eligible based on patient's age to complete this topic Varicella Vaccines Aged Out No longer eligible based on patient's age to complete this topic Procedures Procedure Name Priority Date/Time Associated Diagnosis Comments TISSUE EXAM Routine 12/20/2024 3:32 PM EDT Neoplasm of uncertain behavior of skin from Last 3 Months Results * Tissue exam (12/20/2024 3:32 PM EDT) Final Diagnosis Skin, mid back-excision: -FOCAL RESIDUAL JUNCTIONAL NEVUS, ASSOCIATED WITH CICATRIX (BIOPSY SITE SCAR) -Margins negative 12/22/2024 11:22 AM EDT [facility] at 1122 EDT Clinical Information Neoplasm of uncertain behavior of skin (D48.5) 12/22/2024 11:22 AM EDT [facility] Gross Description A. Other, mid back: Labeled with the patient's name and information and other . Received in formalin is a 2.8 x 1.2 x 1.0 cm white skin ellipse and subcutis with a suture present per the requisition at one peripheral edge 12 o'clock . The epidermis shows a central, nunez, 0.65 cm area which is 0.15 cm from the nearest peripheral edge (3-5 o'clock) at least 0.5 cm from the nearest tips (3 and 9 o'clock). The 9-12-3 o'clock aspect is inked blue, the 3-6-9 o'clock aspect is inked black and the epidermis at 3 o'clock and green. The specimen is serially sectioned sequentially from 3-9 o'clock and help desk representative routine sections are submitted in five cassettes. 1-3 and 9 o'clock perpendicular tips, with green ink at 3 o'clock, two pieces 2-5 sequential sections, one piece each TS 12/22/2024 11:22 AM EDT [facility] Disclaimer Unless otherwise specified, all tissue is 10% NB formalin fixed and paraffin embedded. 12/22/2024 11:22 AM EDT [facility] Tissue Topography unknown / Unknown Non-blood Collection / Unknown 12/20/2024 3:32 PM EDT 12/20/2024 3:40 PM EDT us Cesar Ramsay DO LAB PATHOLOGY ORDERABLES Final Result [facility] [address] [place] [address], from Last 3 Months Insurance [facility] Care Teams Sales And Service Agent Relationship Specialty Start Date End Date Van Moss PA [address] [place] [address] [place] [phone] PCP - General Primary Care 10/31/24
== END 2025-03-12 15:38 | disposition home or self-care (01) ==
LOC: HO.US 15:37
PROVIDERS: Visit Provider Nurse Practitioner Family
DX: N20.0 Calculus of kidney (principal)
CPT/HCPCS: 76775

== ENCOUNTER → 2025-03-12 15:38 | Outpatient (BNV) | payer BC, SELFPAY | PROVIDERS: Visit Provider Radiology Diagnostic Radiology | DX: N20.0 Calculus of kidney (principal); R93.421 Abnormal radiologic findings on diagnostic imaging of right kidney | CPT/HCPCS: 76775 ==